=== PATIENT | female | born 1955 | race Caucasian/White ===

== ENCOUNTER 2024-02-24 06:00 | Day surgery (SDC) | payer OTHER ==
[~2024-02-24] VITALS: Ht 165.1 cm; Wt 65.8 kg
[2024-02-24] MEDS ORDERED: ceFAZolin SODIUM 2 GM in D5W 100 ML IV ONE (07:00)
[2024-02-24] MEDS ORDERED: LIDOCAINE 1%, 20 ML MDV 20 ML ONE (07:40)
[2024-02-24 08:20] VITALS: O2SAT 100
[2024-02-24] MEDS ORDERED: ROCURONIUM BROMIDE 10 MG/ML (ZEMURON) ONE (09:19)
[2024-02-24] MEDS ORDERED: LR 1,000 ML IV.SOLN IV ONE (09:19)
[2024-02-24] MEDS ORDERED: WATER FOR IRRIGATION,STERILE 1,000 ML IRRIG.SOLN IR ONE (09:19)
[2024-02-24] MEDS ORDERED: SUGAMMADEX SODIUM 200 MG/2 ML VIAL IV ONE (09:19)
[2024-02-24] MEDS ORDERED: SEVOFLURANE 15 MIN GAS INH ONE (09:19)
[2024-02-24] MEDS ORDERED: DEXAMETHASONE SOD PHOSPHATE 4 MG/ML VIAL ONE (09:19)
[2024-02-24] MEDS ORDERED: MIDAZOLAM HCL 2 MG/2 ML VIAL (VERSED) ONE (09:19)
[2024-02-24] MEDS ORDERED: NS IRRIG SOLN 1000 ML IR ONE (09:19)
[2024-02-24] MEDS ORDERED: fentaNYL CITRATE/PF 100 MCG/2 ML AMP ONE (09:19)
[2024-02-24] MEDS ORDERED: BUPIVACAINE /PF 0.25% 30 ML VIAL INJ ONE (09:19)
[2024-02-24] MEDS ORDERED: PROPOFOL 200MG/ 20ML VIAL (DIPRIVAN) IV ONE (09:19)
[2024-02-24] MEDS ORDERED: KETOROLAC TROMETHAMINE 30 MG VIAL ONE (09:19)
[2024-02-24] MEDS ORDERED: ONDANSETRON HCL 4 MG/2 ML VIAL ONE (09:19)
[2024-02-24] MEDS ORDERED: HYDROcodone/ACETAMIN 5-325 MG TAB (NORCO/ VICODIN) PO PRN ×2 (10:45)
[2024-02-24] MEDS ORDERED: D5/0.45 NS 1,000 ML IV SCH (10:45)
[2024-02-24] MEDS ORDERED: NALOXONE HCL 0.4 MG/ML AMP (NARCAN) IVP PRN (11:15)
[2024-02-24] MEDS ORDERED: HYDROmorphone 1 MG/ML INJ. CARTRIDGE IVP PRN ×3 (11:15)
[2024-02-24] MEDS ORDERED: ONDANSETRON HCL 4 MG/2 ML VIAL IVP PRN (11:15)
[2024-02-24] MEDS ORDERED: hydrALAZINE HCL 20 MG/ML VIAL IV PRN (11:15)
[2024-02-24 16:56] VITALS: BP_SYST 159; PULSE 68; RESP 17; TEMP 98.4
== END 2024-02-24 12:55 | disposition home or self-care (01) ==
LOC: SMU 06:00 → SDS 06:00
PROVIDERS: ATTEND Colon & Rectal Surgery
DX: N64.89 Other specified disorders of breast (principal); N60.82 Other benign mammary dysplasias of left breast; F41.9 Anxiety disorder, unspecified; Z90.710 Acquired absence of both cervix and uterus; Z98.890 Other specified postprocedural states; Z79.899 Other long term (current) drug therapy; Z84.0 Family history of diseases of the skin and subcutaneous tissue; Z80.8 Family history of malignant neoplasm of other organs or systems
CPT/HCPCS: 87081; 19301; 76098; 19281; 88305; J3490 ×2; J1100; J1885; J3465; J2405; J2704; J3010; J7060; J7120; C1819; J2001